=== PATIENT | male | born 1990 ===

== ENCOUNTER 2019-03-02 18:29 | Emergency (ER) | payer SELFPAY ==
[2019-03-02 18:33] VITALS: O2SAT 98
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
[2019-03-02] MEDS ORDERED: Oxycodone/Acetaminophen 5/325 mg Tab PO STA (20:32)
[2019-03-02] MEDS ORDERED: Oxycodone/Acetaminophen 5/325 mg Tab ONE (20:41)
[2019-03-02 21:44] VITALS: BP 150/100; PULSE 91; RESP 16; TEMP 98.8
--- NOTE | 2019-03-03 07:38 | CT ---
CT left knee HISTORY: Tibia and fibula fractures. COMPARISON: X-ray dated 03/02/2019 TECHNIQUE: Multiple contiguous axial images were performed through the left knee without the use of intravenous contrast. Subsequently, sagittal and coronal reformatted images were obtained. FINDINGS: Prominent fracture deformities of the proximal tibia. At the posterior aspect of the proximal tibia, there is a long vertically oriented intra-articular fracture deformity which extends approximately 9.2 centimeters in craniocaudal dimension from the midline posterior tibial plateau inferiorly to the proximal medullary cavity. At the proximal tibia posteriorly, the fracture appears to extend in an anteromedial fashion along the tibial plateau along the articular surface to the level of the tibial spines. More inferiorly, along the posterior cortex, at the level of the metadiaphysis, the fracture extends both medially and laterally disrupting the posterior cortex with associated mild comminution best demonstrated on series 2, image 41 as well as series 602 images 26 through 48. Mildly comminuted fracture deformity seen through the proximal fibula at the fibular head neck junction. Large suprapatellar joint effusion with layering hemarthrosis. Prominent reticulation and edema within the visualized musculature at the level of the proximal tibia and fibula. Diffuse osteopenia. Heterogeneous attenuation of the osseous marrow. This may be better evaluated with MRI. Postsurgical changes of the distal femur. Impression: 1. Prominent fracture deformities of the proximal tibia. At the posterior aspect of the proximal tibia, there is a long vertically oriented intra-articular fracture deformity which extends approximately 9.2 centimeters in craniocaudal dimension from the midline posterior tibial plateau inferiorly to the proximal medullary cavity. At the proximal tibia posteriorly, the fracture appears to extend in an anteromedial fashion along the tibial plateau along the articular surface to the level of the tibial spines. More inferiorly, along the posterior cortex, at the level of the metadiaphysis, the fracture extends both medially and laterally disrupting the posterior cortex with associated mild comminution best demonstrated on series 2, image 41 as well as series 602 images 26 through 48. 2. Mildly comminuted fracture deformity seen through the proximal fibula at the fibular head neck junction. 3. Large suprapatellar joint effusion with layering hemarthrosis. 4. Prominent reticulation and edema within the visualized musculature at the level of the proximal tibia and fibula. 5. Diffuse osteopenia. Heterogeneous attenuation of the osseous marrow. This may be better evaluated with MRI.
--- NOTE | 2019-03-03 08:33 | RAD ---
Date of service: 03/02/2019 PROCEDURE: Left Knee Radiographs. HISTORY: Pain. COMPARISON: None. TECHNIQUE: 2 views obtained. FINDINGS: BONES: Status post ORIF mid femoral fracture with evidence of healing. There is an acute nondisplaced oblique fracture of the proximal tibia extending to the articular surface. There is a transverse nondisplaced fracture of the proximal fibula. JOINTS: Normal. No osteoarthritis. JOINT EFFUSION: There is probable lipohemarthrosis in the suprapatellar bursa. OTHER FINDINGS: None. IMPRESSION: Nondisplaced fractures of proximal tibia and fibula.
== END 2019-03-02 22:36 | disposition home or self-care (01) ==
LOC: C.ER 18:29
DX: S82.142A Displaced bicondylar fracture of left tibia, initial encounter for closed fracture (principal); S82.402A Unspecified fracture of shaft of left fibula, initial encounter for closed fracture; W05.0XXA Fall from non-moving wheelchair, initial encounter; Z99.3 Dependence on wheelchair; R03.0 Elevated blood-pressure reading, without diagnosis of hypertension